=== PATIENT | male | born 1970 | race Caucasian/White ===

== ENCOUNTER 2020-06-24 19:44 | Emergency (ER) | payer BC ==
[2020-06-24] MEDS ORDERED: TETANUS & DIPHTHERIA TOX,ADULT 0.5 ML VIAL ONE (20:38)
[2020-06-24] MEDS ORDERED: HYDROCODONE/APAP 5/325 MG TAB ONE (20:38)
[2020-06-24] MEDS ORDERED: BACITRACIN OINTMENT 15 GM TUBE TOP ONE (20:46)
--- NOTE | 2020-06-24 21:29 | ER ---
Nurse's Notes [facility] Name: Calvin Hsu Age: 49 yrs Sex: Male : 1970 Arrival Date: 06/24/2020 Time: 19:45 Bed 24 Private MD: Diagnosis: Burn of second degree of left hand, unspecified site Presentation: 06/24 19:51 Chief complaint: Patient states: "The pizza stone was falling out of oven and I caught jd3 the pizza stone. the oven was about 450.". Coronavirus screen: At this time, the client does not indicate any symptoms associated with coronavirus-19. Ebola Screen: Patient negative for fever greater than or equal to 101.5 degrees Fahrenheit, and additional compatible Ebola Virus Disease symptoms. Initial Sepsis Screen: Does the patient meet any 2 criteria? No. Patient's initial sepsis screen is negative. Does the patient have a suspected source of infection? No. Patient's initial sepsis screen is negative. Risk Assessment: Do you want to hurt yourself or someone else? Patient reports no desire to harm self or others. Note pt reports having a ride. Onset of symptoms was June 24, 2020. 19:51 Method Of Arrival: Ambulatory jd3 19:51 Acuity: PHILIP 4 jd3 Historical: - Allergies: 19:54 PENICILLINS; jd3 19:54 Sulfa (Sulfonamide Antibiotics); jd3 - Home Meds: 19:54 None [Active]; jd3 - Immunization history:: Adult Immunizations up to date. - Social history:: Smoking status: Patient denies any tobacco usage or history of. Assessment: 20:30 General: Appears in no apparent distress. well groomed, well developed, well nourished, sg Behavior is calm, cooperative, appropriate for age. Pain: Complains of pain in left hand Quality of pain is described as throbbing. Neuro: Level of Consciousness is awake, alert, obeys commands, Oriented to person, place, time, Service Specialist are equal bilaterally. Cardiovascular: Capillary refill is brisk in bilateral fingers Patient's skin is warm and dry. Vital Signs: 19:54 BP 153 / 98; Pulse 73; Resp 17 S; Temp 97.9(TE); Pulse Ox 98% on R/A; Weight 106.59 kg jd3 (R); Height 5 ft. 10 in. (177.80 cm) (R); Pain 8/10; 19:54 Body Mass Index 33.72 (106.59 kg, 177.80 cm) jd3 ED Course: 19:45 Patient arrived in ED. bp1 19:53 Triage completed. jd3 19:54 Arm band placed on. jd3 20:09 [facility] pm1 20:09 Zac Collins MD is Attending Physician. pm1 20:10 Oniel Sam, RN is Primary Nurse. sg 21:30 No provider procedures requiring assistance completed. Patient did not have IV access sg during this emergency room visit. 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 Exp: sg 11/23/2022. Lot #: [id number]. } Route: IM; Site: left deltoid; 20:25 Drug: [place] 5 mg-325 mg 1 tabs Route: PO; sg 20:35 Drug: Bacitracin Ointment (500 unit/g) 1 application Route: Topical; Site: affected sg area; Outcome: 21:28 Discharge ordered by . pm1 21:30 Discharged to home ambulatory, with family. sg 21:30 Condition: good 21:30 Discharge instructions given to patient, Instructed on discharge instructions, follow up and referral plans. no drinking with medication, no driving heavy equipment, medication usage, safety practices, wound care, Demonstrated understanding of instructions, follow-up care, medications, Prescriptions given X 2. 21:34 Patient left the ED. sg Signatures: Oniel Sam RN RN Zach Villegas NP [employer] SUPERVISOR pm1 Fabrizio Cantu RN RN jd3 Cheryl Whitley bp1 Corrections: (The following items were deleted from the chart) 19:56 19:54 Pulse 73bpm; Resp 17bpm; Spontaneous; Pulse Ox 98% RA; Temp 97.9F Temporal; jd3 106.59 kg Reported; Height 5 ft. 10 in. Reported; BMI: 33.7; Pain 8/10; jd3
--- NOTE | 2020-06-24 21:29 | EDPHYS ---
Physician Documentation [facility] Name: Calvin Hsu Age: 49 yrs Sex: Male : 1970 Arrival Date: 06/24/2020 Time: 19:45 Bed 24 Private MD: ED Physician Zac Collins HPI: 06/24 20:26 This 49 yrs old Male presents to ER via Ambulatory with complaints of Hand Burn. pm1 20:26 The patient presents with a burn as a result of a hot surface, pizza stone, at home, is pm1 located on the left hand. Onset: The symptoms/episode began/occurred 1 hour(s) ago. Burn type and severity: 2nd degree: of the finger tip of left thumb, second finger, and third finger. Associated signs and symptoms: none. The patient did not suffer any apparent inhalation injury, The patient had no loss of consciousness. The patient has not experienced similar symptoms in the past. Patient grabbed the pizza stone his bare hand by accident. Presenting with burn to left hand. Historical: - Allergies: 19:54 PENICILLINS; jd3 19:54 Sulfa (Sulfonamide Antibiotics); jd3 - Home Meds: 19:54 None [Active]; jd3 - Immunization history:: Adult Immunizations up to date. - Social history:: Smoking status: Patient denies any tobacco usage or history of. ROS: 20:26 Constitutional: Negative for fever, chills, and weight loss. pm1 20:26 MS/extremity: Negative for decreased range of motion, deformity, able to move left fingers full range of motion. 20:26 Skin: Positive for burn, of the left hand. 20:26 All other systems are negative. Exam: 20:26 Constitutional: This is a well developed, well nourished patient who is awake, alert, pm1 and in no acute distress. Head/Face: Normocephalic, atraumatic. 20:26 Skin: Appearance: normal except for affected area, injury, burn(s), 1st degree burn injury covers approximately 0.1% of the total body surface area, and is located on the palmar aspect of middle phalanx of left index finger and palmar aspect of proximal phalanx of left index finger, 2nd degree burn injury covers approximately 0.1% of the total body surface area, and is located on the palmar aspect of distal phalanx of left middle finger, palmar aspect of distal phalanx of left index finger and palmar aspect of distal phalanx of left thumb. Vital Signs: 19:54 BP 153 / 98; Pulse 73; Resp 17 S; Temp 97.9(TE); Pulse Ox 98% on R/A; Weight 106.59 kg jd3 (R); Height 5 ft. 10 in. (177.80 cm) (R); Pain 8/10; 19:54 Body Mass Index 33.72 (106.59 kg, 177.80 cm) jd3 MDM: 20:12 Patient medically screened. pm1 21:23 Data reviewed: vital signs. Data interpreted: Pulse oximetry: on room air is 98 %. pm1 Interpretation: normal. Counseling: I had a detailed discussion with the patient and/or guardian regarding: the historical points, exam findings, and any diagnostic results supporting the discharge/admit diagnosis, the need for outpatient follow up, burn clinic, to return to the emergency department if symptoms worsen or persist or if there are any questions or concerns that arise at home. 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 Exp: 11/23/2022. Lot #: [id number]. } Route: IM; Site: left deltoid; 20:25 Drug: [place] 5 mg-325 mg 1 tabs Route: PO; sg 20:35 Drug: Bacitracin Ointment (500 unit/g) 1 application Route: Topical; Site: affected sg area; Disposition: 06/25 05:33 Co-signature as Attending Physician, Zac Collins MD. [email or web address] Disposition: 06/24/20 21:28 Discharged to Home. Impression: Burn of second degree of left hand, unspecified site. - Condition is Stable. - Discharge Instructions: Second-Degree Burn. - Prescriptions for bacitracin - apply 1 application by TOPICAL route every 8 hours; 1 tube. Tylenol- Codeine #3 300-30 mg Oral Tablet - take 2 tablets by ORAL route every 6 hours As needed; 20 tablet. - Medication Reconciliation Form, Thank You Letter, Antibiotic Education, Prescription Opioid Use form. - Follow up: Emergency Department; When: As needed; Reason: Worsening of condition. Follow up: Private Physician; When: 2 - 3 days; Reason: Recheck today's complaints, Continuance of care, Re-evaluation by your physician. - Problem is new. - Symptoms have improved. - Notes: [facility], [address] 8th [address] - Inside [facility] 8AM-4:30PM Madi Signatures: Oniel Sam RN RN Zach Hernandez NP POLYMER CHEMIST pm1 Fabrizio Cantu RN RN jZac Graves MD MD [email or web address] Corrections: (The following items were deleted from the chart) 06/24 21:34 21:28 06/24/2020 21:28 Discharged to Home. Impression: Burn of second degree of left sg hand, unspecified site. Condition is Stable. Forms are Medication Reconciliation Form, Thank You Letter, Antibiotic Education, Prescription Opioid Use. Follow up: Emergency Department; When: As needed; Reason: Worsening of condition. Follow up: Private Physician; When: 2 - 3 days; Reason: Recheck today's complaints, Continuance of care, Re-evaluation by your physician. Problem is new. Symptoms have improved. pm1
[2020-06-24 21:38] VITALS: BP 153/98; TEMP 97.9; O2SAT 98
== END 2020-06-24 21:34 | disposition home or self-care (01) ==
LOC: ER 19:44
DX: T23.202A Burn of second degree of left hand, unspecified site, initial encounter (principal); X15.8XXA Contact with other hot household appliances, initial encounter; Y93.9 Activity, unspecified; Y92.000 Kitchen of unspecified non-institutional (private) residence as the place of occurrence of the external cause; Z23 Encounter for immunization; Z88.0 Allergy status to penicillin; Z88.2 Allergy status to sulfonamides
CPT/HCPCS: 90471; 90714; 99283

== ENCOUNTER 2021-01-24 05:32 | Inpatient (IN) | payer BC, OTHER ==
[2021-01-24 06:27] LABS: Absolute Lymphocytes (CBC) 1.8 K/uL (0.7-4.9); Basophils % 0.3 % (0-1.3); Hematocrit 44.1 % (39.6-49.0); Lymphocytes % 16.6 % (15.3-44.8); MPV 8.2 fL (7.6-11.3); RBC Red Blood Cell Count 5.06 M/uL (4.33-5.43)
[2021-01-24 06:45] LABS: ALT/SGPT 40 U/L (12-78); AST/SGOT 36 U/L (15-37); Albumin 3.8 g/dL (3.4-5.0); Alkaline Phosphatase 70 U/L (45-117); BUN Blood Urea Nitrogen 10 mg/dL (7-18); Bicarbonate 27 mmol/L (21-32); Bilirubin Direct 0.2 mg/dL (0-0.2); Bilirubin Total 0.9 mg/dL (0.2-1.0); Glucose Level 121 mg/dL (74-106); Lipase 79 U/L (73-393); Potassium 3.9 mmol/L (3.5-5.1); Protein, Total 7.3 g/dL (6.4-8.2); Sodium Level 138 mmol/L (136-145); Troponin (Emerg Dept Use Only) < 0.02 ng/mL (0.0-0.045)
[2021-01-24] MEDS ORDERED: NA CHLORIDE 0.9% 1,000 ML ONE (07:04)
[2021-01-24] MEDS ORDERED: MORPHINE 4 MG/ML SYR ONE ×2 (07:04→09:27)
[2021-01-24] MEDS ORDERED: METRONIDAZOLE 500mg IVPB 500 MG/100 ML BAG IV ONE (07:04)
[2021-01-24] MEDS ORDERED: CEFTRIAXONE/SWI 1gm 1 GM/10 ML SYR ONE (07:04)
[2021-01-24] MEDS ORDERED: ONDANSETRON 4 MG/2 ML VIAL ONE (07:04)
--- NOTE | 2021-01-24 07:35 | EDPHYS ---
Physician Documentation [facility] Name: Calvin Hsu Age: 50 yrs Sex: Male : 1970 Arrival Date: 01/24/2021 Time: 05:35 Bed 5 Private MD: [place] Physician Zhen Herron HPI: 01/24 06:42 This 50 yrs old Male presents to ER via Ambulatory with complaints of Abdominal Pain. ma2 06:42 The patient presents with abdominal pain in the left lower quadrant. Onset: The ma2 symptoms/episode began/occurred gradually, 3 day(s) ago. Associated signs and symptoms: Pertinent negatives: blood in stools, constipation, dysuria, fever. Severity of pain: At its worst the pain was moderate in the emergency department the pain is unchanged. The patient has not experienced similar symptoms in the past. Historical: - Allergies: 06:00 PENICILLINS; rr5 06:00 Sulfa (Sulfonamide Antibiotics); rr5 - Home Meds: 06:00 Pristiq oral oral [Active]; rr5 - PMHx: 06:00 Depression; rr5 - PSHx: 06:00 Hernia repair; rr5 - Immunization history:: Adult Immunizations up to date, Client reports receiving the 2nd dose of the Covid vaccine. - Social history:: Smoking status: unknown Patient uses alcohol, occasionally. Patient/guardian denies using street drugs, The patient lives alone. - Family history:: not pertinent. ROS: 06:42 Constitutional: Negative for fever, chills, and weight loss. ma2 06:42 All other systems are negative. Exam: 06:42 Constitutional: This is a well developed, well nourished patient who is awake, alert, ma2 and in no acute distress. ENT: Nares patent. No nasal discharge, no septal abnormalities noted. Tympanic membranes are normal and external auditory canals are clear. Oropharynx with no redness, swelling, or masses, exudates, or evidence of obstruction, uvula midline. Mucous membranes moist. Neck: Trachea midline, no thyromegaly or masses palpated, and no cervical lymphadenopathy. Supple, full range of motion without nuchal rigidity, or vertebral point tenderness. No Meningismus. Chest/axilla: Normal chest wall appearance and motion. Nontender with no deformity. No lesions are appreciated. Cardiovascular: Regular rate and rhythm with a normal S1 and S2. No gallops, murmurs, or rubs. Normal PMI, no JVD. No pulse deficits. Respiratory: Lungs have equal breath sounds bilaterally, clear to auscultation and percussion. No rales, rhonchi or wheezes noted. No increased work of breathing, no retractions or nasal flaring. Back: No spinal tenderness. No costovertebral tenderness. Full range of motion. Male : Normal genitalia with no discharge or lesions. MS/ Extremity: Pulses equal, no cyanosis. Neurovascular intact. Full, normal range of motion. Neuro: Awake and alert, GCS 15, oriented to person, place, time, and situation. Cranial nerves II-XII grossly intact. Motor strength 5/5 in all extremities. Sensory grossly intact. Cerebellar exam normal. Normal gait. 06:42 Abdomen/GI: Inspection: abdomen appears normal, Bowel sounds: normal, Palpation: mild abdominal tenderness, in the left lower quadrant, rebound tenderness, is not appreciated, voluntary guarding, is not appreciated, no appreciated organomegaly, Liver: no appreciated palpable abnormalities, Hernia: not appreciated. Vital Signs: 05:57 BP 154 / 85; Pulse 87; Resp 16; Temp 98.9; Pulse Ox 99% ; Weight 106.59 kg; Height 5 rr5 ft. 11 in. (180.34 cm); Pain 9/10; 07:02 BP 141 / 76; Pulse 80; Resp 19; Pulse Ox 98% ; rr5 10:12 BP 132 / 77; Pulse 77; Resp 18; Pulse Ox 95% on R/A; ll1 12:39 BP 132 / 79; Pulse 79; Resp 18; Pulse Ox 95% on R/A; ll1 05:57 Body Mass Index 32.78 (106.59 kg, 180.34 cm) rr5 MDM: 05:50 Patient medically screened. ma2 06:43 Differential diagnosis: diverticulitis, gastritis, gastroesophageal reflux disease, ma2 Irritable bowel syndrome. 07:29 Data reviewed: vital signs, nurses notes, lab test result(s), radiologic studies, CT leni scan. Data interpreted: online marketing strategist: rate is 80 beats/min, rhythm is regular, Pulse oximetry: on room air is 98 %. Test interpretation: by ED physician or midlevel provider:. Counseling: I had a detailed discussion with the patient and/or guardian regarding: the historical points, exam findings, and any diagnostic results supporting the discharge/admit diagnosis, lab results, the need for further work-up and treatment in the hospital. 01/24 05:51 Order name: Basic Metabolic Panel; Complete Time: 06:56 ma2 01/24 05:51 Order name: CBC with Diff; Complete Time: 06:56 ma2 01/24 05:51 Order name: Hepatic Function; Complete Time: 06:56 ma2 01/24 05:51 Order name: Lipase; Complete Time: 06:56 ma2 01/24 05:51 Order name: Troponin (emerg Dept Use Only); Complete Time: 06:56 ma2 01/24 05:52 Order name: CT Abd/Pelvis - Without Cont (PO Contrast Only) va2 01/24 09:00 Order name: Urine Dipstick-Ancillary [facility] 01/24 10:38 Order name: SARS-COV-2 RT PCR EDLA 01/24 05:51 Order name: IV Saline Lock; Complete Time: 06:16 va2 01/24 05:51 Order name: Labs collected and sent; Complete Time: 06:16 va2 01/24 05:51 Order name: Urine Dipstick-Ancillary (obtain specimen); Complete Time: 09:01 va2 01/24 09:03 Order name: NPO; Complete Time: 09:11 leni Administered Medications: 06:45 Drug: NS 0.9% 1000 ml Route: IV; Rate: 1 bolus; Site: right forearm; rr5 09:00 Follow up: Response: No adverse reaction; IV Status: Completed infusion; IV Intake: aa5 1000ml 06:45 Drug: Zofran (Ondansetron) 4 mg Route: IVP; Site: right forearm; rr5 07:14 Follow up: Response: No adverse reaction; RASS: Alert and Calm (0) rr5 06:47 Drug: morphine 4 mg {Note: rass 0.} Route: IVP; Site: right forearm; rr5 07:51 Follow up: Response: No adverse reaction; Pain is decreased; RASS: Alert and Calm (0) ll1 06:48 Drug: Rocephin (cefTRIAXone) 1 grams Route: IV; Rate: calculated rate; Site: right rr5 forearm; 07:50 Follow up: Response: No adverse reaction; RASS: Alert and Calm (0); IV Status: ll1 Completed infusion; IV Intake: 10ml 06:50 Drug: Flagyl (metroNIDAZOLE) 500 mg Volume: 100 ml; Route: IVPB; Rate: 200 ml/hr; rr5 Infused Over: 30 mins; Site: right forearm; 07:50 Follow up: Response: No adverse reaction; RASS: Alert and Calm (0); IV Status: ll1 Completed infusion; IV Intake: 100ml 07:49 Drug: Cipro (ciprofloxacin) 400 mg Volume: 200 ml; Route: IVPB; Infused Over: 60 mins; ll1 Site: right antecubital; 09:11 Follow up: Response: No adverse reaction; RASS: Alert and Calm (0); IV Status: ll1 Completed infusion; IV Intake: 100ml 07:49 Drug: Pepcid (famotidine) 20 mg Route: IVP; Site: right antecubital; ll1 07:51 Follow up: Response: No adverse reaction ll1 09:13 Drug: morphine 4 mg Route: IVP; Site: right antecubital; ll1 10:14 Follow up: Response: No adverse reaction; RASS: Alert and Calm (0) ll1 Disposition: 01/24/21 07:34 Hospitalization ordered by Arsh Cardenas for Inpatient Admission. Preliminary diagnosis are Abdominal tenderness - perforated diverticulitis, mild pneumoperitoneum, Diverticular disease of intestine, Diverticulitis of large intestine with perforation and abscess without bleeding. - Bed requested for Telemetry/MedSurg (Inpatient). - Status is Inpatient Admission. aa5 - Condition is Stable. - Problem is new. - Symptoms have improved. Signatures: Dispatcher [employer] EDLA Lay Sellers RN RN dw Anderson, Corey, MD MD cha Calderon, Audri, RN RN aa5 Arsh Malloyr MD MD ma2 Richie Child RN RN rr5 Osmar Leahy RN RN ll1 Corrections: (The following items were deleted from the chart) 06:16 06:00 PMHx: None; rr5 rr5 09:05 07:34 Hospitalization Ordered by Arsh Cardenas MD for Inpatient Admission. Preliminary leni diagnosis is Abdominal tenderness; Diverticular disease of intestine; Diverticulitis of large intestine without perforation or abscess without bleeding. Bed requested for Telemetry/MedSurg (Inpatient). Status is Inpatient Admission. Condition is Stable. Problem is new. Symptoms have improved. leni 09:53 07:37 CORONAVIRUS+MR.LAB.BRZ ordered. EDLA EDMS 12:39 09:05 01/24/2021 07:34 Hospitalization Ordered by Arsh Cardenas MD for Inpatient dw Admission. Preliminary diagnosis is Abdominal tenderness - perforated diverticulitis, mild pneumoperitoneum; Diverticular disease of intestine; Diverticulitis of large intestine with perforation and abscess without bleeding. Bed requested for Telemetry/MedSurg (Inpatient). Status is Inpatient Admission. Condition is Stable. Problem is new. Symptoms have improved. leni 13:21 12:39 01/24/2021 07:34 Hospitalization Ordered by Arsh Cardenas MD for Inpatient aa5 Admission. Preliminary diagnosis is Abdominal tenderness - perforated diverticulitis, mild pneumoperitoneum; Diverticular disease of intestine; Diverticulitis of large intestine with perforation and abscess without bleeding. Bed requested for Telemetry/MedSurg (Inpatient). Status is Inpatient Admission. Condition is Stable. Problem is new. Symptoms have improved. dw
--- NOTE | 2021-01-24 07:35 | ER ---
Nurse's Notes [facility] Name: Calvin Hsu Age: 50 yrs Sex: Male : 1970 Arrival Date: 01/24/2021 Time: 05:35 Bed 5 Private MD: Diagnosis: Abdominal tenderness-perforated diverticulitis, mild pneumoperitoneum;Diverticular disease of intestine;Diverticulitis of large intestine with perforation and abscess without bleeding Presentation: 01/24 05:57 Chief complaint: Patient states: I am having lower abdominal pain started yesterday and rr5 its getting worse. feels nauseated but no fever or vomiting no urinary symptoms. last BM yesterday watery consistency, once. Coronavirus screen: Client denies travel out of the [place] in the last 14 days. At this time, the client does not indicate any symptoms associated with coronavirus-19. Ebola Screen: Patient negative for fever greater than or equal to 101.5 degrees Fahrenheit, and additional compatible Ebola Virus Disease symptoms Patient denies exposure to infectious person. Patient denies travel to an Ebola-affected area in the 21 days before illness onset. Initial Sepsis Screen: Does the patient meet any 2 criteria? No. Patient's initial sepsis screen is negative. Does the patient have a suspected source of infection? No. Patient's initial sepsis screen is negative. Risk Assessment: Do you want to hurt yourself or someone else? Patient reports no desire to harm self or others. Onset of symptoms was January 23, 2021. 05:57 Method Of Arrival: Ambulatory rr5 05:57 Acuity: PHILIP 3 rr5 Historical: - Allergies: 06:00 PENICILLINS; rr5 06:00 Sulfa (Sulfonamide Antibiotics); rr5 - Home Meds: 06:00 Pristiq oral oral [Active]; rr5 - PMHx: 06:00 Depression; rr5 - PSHx: 06:00 Hernia repair; rr5 - Immunization history:: Adult Immunizations up to date, Client reports receiving the 2nd dose of the Covid vaccine. - Social history:: Smoking status: unknown Patient uses alcohol, occasionally. Patient/guardian denies using street drugs, The patient lives alone. - Family history:: not pertinent. Screenin:02 Abuse screen: Denies threats or abuse. Denies injuries from another. Nutritional rr5 screening: No deficits noted. Tuberculosis screening: No symptoms or risk factors identified. Fall Risk IV access (20 points). Total Royal Fall Scale indicates No Risk (0-24 pts). Assessment: 06:00 General: Appears in no apparent distress. uncomfortable, Behavior is calm, cooperative, rr5 appropriate for age. Pain: Complains of pain in right lower quadrant and left lower quadrant Pain currently is 9 out of 10 on a pain scale. Quality of pain is described as aching, Pain began gradually, Is intermittent. Neuro: Level of Consciousness is awake, alert, obeys commands, Oriented to person, place, time. Cardiovascular: Capillary refill < 3 seconds Patient's skin is warm and dry. Respiratory: Airway is patent Respiratory effort is even, unlabored, Respiratory pattern is regular, symmetrical. GI: Abdomen is round non-distended, Abd is soft Reports lower abdominal pain, nausea. : No signs and/or symptoms were reported regarding the genitourinary system. EENT: No signs and/or symptoms were reported regarding the EENT system. Derm: Skin is intact, is healthy with good turgor, Skin temperature is warm. Musculoskeletal: Capillary refill < 3 seconds. 07:00 Reassessment: No changes from previously documented assessment. Patient and/or family ll1 updated on plan of care and expected duration. Pain level reassessed. Patient is alert, oriented x 3, equal unlabored respirations, skin warm/dry/pink. 09:00 Reassessment: No changes from previously documented assessment. Patient and/or family ll1 updated on plan of care and expected duration. Pain level reassessed. 10:00 Reassessment: No changes from previously documented assessment. Patient and/or family ll1 updated on plan of care and expected duration. Pain level reassessed. 11:00 Reassessment: No changes from previously documented assessment. Patient and/or family ll1 updated on plan of care and expected duration. Pain level reassessed. 12:00 Reassessment: No changes from previously documented assessment. Patient and/or family ll1 updated on plan of care and expected duration. Pain level reassessed. 13:00 Reassessment: No changes from previously documented assessment. Patient and/or family ll1 updated on plan of care and expected duration. Pain level reassessed. Patient states feeling better. Vital Signs: 05:57 BP 154 / 85; Pulse 87; Resp 16; Temp 98.9; Pulse Ox 99% ; Weight 106.59 kg; Height 5 rr5 ft. 11 in. (180.34 cm); Pain 9/10; 07:02 BP 141 / 76; Pulse 80; Resp 19; Pulse Ox 98% ; rr5 10:12 BP 132 / 77; Pulse 77; Resp 18; Pulse Ox 95% on R/A; ll1 12:39 BP 132 / 79; Pulse 79; Resp 18; Pulse Ox 95% on R/A; ll1 05:57 Body Mass Index 32.78 (106.59 kg, 180.34 cm) rr5 ED Course: 05:35 Patient arrived in ED. bp1 05:49 Richie Child, RN is Primary Nurse. rr5 05:50 Arsh Mallory MD is Attending Physician. ma2 06:00 Triage completed. rr5 06:01 Arm band placed on right wrist. rr5 06:10 Patient has correct armband on for positive identification. Placed in gown. Bed in low rr5 position. Call light in reach. transformer molder on. Pulse ox on. NIBP on. 06:10 Inserted saline lock: 20 gauge in right forearm, using aseptic technique. Blood rr5 collected. 07:17 Attending Physician role handed off by Arsh Mallory MD leni 07:17 Zhen Herron MD is Attending Physician. leni 07:30 Arsh Cardenas MD is Hospitalizing Provider. leni 08:25 CT Abd/Pelvis - Without Cont (PO Contrast Only) In Process Unspecified. EDMS 13:06 No provider procedures requiring assistance completed. Patient admitted, IV remains in ll1 place. Administered Medications: 06:45 Drug: NS 0.9% 1000 ml Route: IV; Rate: 1 bolus; Site: right forearm; rr5 09:00 Follow up: Response: No adverse reaction; IV Status: Completed infusion; IV Intake: aa5 1000ml 06:45 Drug: Zofran (Ondansetron) 4 mg Route: IVP; Site: right forearm; rr5 07:14 Follow up: Response: No adverse reaction; RASS: Alert and Calm (0) rr5 06:47 Drug: morphine 4 mg {Note: rass 0.} Route: IVP; Site: right forearm; rr5 07:51 Follow up: Response: No adverse reaction; Pain is decreased; RASS: Alert and Calm (0) ll1 06:48 Drug: Rocephin (cefTRIAXone) 1 grams Route: IV; Rate: calculated rate; Site: right rr5 forearm; 07:50 Follow up: Response: No adverse reaction; RASS: Alert and Calm (0); IV Status: ll1 Completed infusion; IV Intake: 10ml 06:50 Drug: Flagyl (metroNIDAZOLE) 500 mg Volume: 100 ml; Route: IVPB; Rate: 200 ml/hr; rr5 Infused Over: 30 mins; Site: right forearm; 07:50 Follow up: Response: No adverse reaction; RASS: Alert and Calm (0); IV Status: ll1 Completed infusion; IV Intake: 100ml 07:49 Drug: Cipro (ciprofloxacin) 400 mg Volume: 200 ml; Route: IVPB; Infused Over: 60 mins; ll1 Site: right antecubital; 09:11 Follow up: Response: No adverse reaction; RASS: Alert and Calm (0); IV Status: ll1 Completed infusion; IV Intake: 100ml 07:49 Drug: Pepcid (famotidine) 20 mg Route: IVP; Site: right antecubital; ll1 07:51 Follow up: Response: No adverse reaction ll1 09:13 Drug: morphine 4 mg Route: IVP; Site: right antecubital; ll1 10:14 Follow up: Response: No adverse reaction; RASS: Alert and Calm (0) ll1 Intake: 07:50 IV: 100ml; Total: 100ml. ll1 07:50 IV: 10ml; Total: 110ml. ll1 09:00 IV: 1000ml; Total: 1110ml. aa5 09:11 IV: 100ml; Total: 1210ml. ll1 Outcome: 07:34 Decision to Hospitalize by Provider. leni 13:07 Admitted to Tele accompanied by tech, family with patient, via wheelchair, room 423, ll1 with chart, Report called to Quynh Bedoya RN on . 13:07 Condition: stable 13:07 Instructed on the need for admit. 13:21 Patient left the ED. aa5 Signatures: Dispatcher [employer] EDZhen Roe MD MD cha Calderon, Audri, RN RN aa5 Arsh Mallory MD MD ma2 Richie Child RN RN rr5 Osmar Leahy RN RN ll1 Cheryl Whitley [facility] Corrections: (The following items were deleted from the chart) 06:16 06:00 PMHx: None; rr5 rr5
[2021-01-24] MEDS ORDERED: FAMOTIDINE 20 MG/2 ML VIAL IV ONE (07:55)
[2021-01-24] MEDS ORDERED: CIPROFLOXACIN 400mg IV 400 MG/200 ML BAG IV ONE (07:56)
--- NOTE | 2021-01-24 08:46 | RAD REPORT ---
EXAM DESCRIPTION: CT - Abdomen Pelvis Wo Contrast - 01/24/2021 8:25 am CLINICAL HISTORY: Abdominal pain. ABD PAIN COMPARISON: No comparisons TECHNIQUE: CT imaging of the abdomen and pelvis was performed without contrast. Solid organ and vasc ular assessment is limited due to lack of IV contrast. All CT scans are performed using dose optimization technique as appropriate and may include automated exposure control or mA/KV adjustment according to patient size. FINDINGS: The lower lung toure are clear. The liver, spleen, pancreas, adrenal glands and kidneys are within normal limits for a limited non-co ntrast examination. Small amount of pneumoperitoneum is present in the upper abdomen. There is a 5 cm length of sigmoid c olon in the left lower quadrant with surrounding inflammation present. Several diverticula are presen t in the region. The appendix is normal. No free fluid or abscess. The osseous structures are within normal limits.Small to moderate left fat containing inguinal hernia . IMPRESSION: 5 cm length of inflammation is seen involving the left lower quadrant sigmoid colon like ly indicating diverticulitis. Colonoscopy followup would be suggested after appropriate therapy to ex clude underlying inflammatory mass. Mild pneumoperitoneum is seen. A limited non-contrast examination was performed as detailed.
[2021-01-24 09:00] LABS: Urine Blood Negative (Negative); Urine Glucose Negative (Negative); Urine Protein Negative (Negative)
[2021-01-24] MEDS ORDERED: ACETAMINOPHEN 500 MG TAB PO PRN (11:49)
[2021-01-24] MEDS: NA CHLORIDE 0.9% 1,000 ML IV SCH ×2 (13:36→22:07)
[2021-01-24 13:56] VITALS: BMI 32.8
[2021-01-24] MEDS: METRONIDAZOLE 500mg IVPB 500 MG/100 ML BAG IV SCH (16:29)
[2021-01-24] MEDS: ONDANSETRON 4 MG/2 ML VIAL IV PRN ×2 (16:33→22:06)
[2021-01-24] MEDS: MORPHINE 4 MG/ML SYR IV PRN ×2 (16:33→22:06)
--- NOTE | 2021-01-24 17:05 | CON ---
Date of Consultation: 01/24/2021 Reason: Abdominal pain. History Of Present Illness: The patient is a 50-year-old gentleman comes in with a 2-day history of lower abdominal pain. This started initially as a discomfort and became more painful. He had no nancy rrhea, constipation or blood in his stool. No dysuria or hematuria. No sore throat, runny nose, cou gh, headaches, or dizziness. No chest pain. No fever or chills. Has not had similar episodes in th e past. He did have a colonoscopy 5 years ago which reportedly showed some diverticulosis, that was in [place]. He recently found out that mother has colon cancer. Review of Systems: Otherwise unremarkable. Past Medical History: Depression. Past Surgical History: Hernia surgery in the right groin. Allergies: PENICILLIN AND SULFA. Social History: The patient does not smoke. Drinks occasionally. Family History: Other than the colon cancer in the mother is unremarkable. Physical Examination: Vital Signs: Currently are stable. He is afebrile. General: He is awake, alert, and oriented x3. Head and neck: Cranial nerves 2 through 12 are grossly within normal limits. No neck masses. No JV D. Throat clear. Chest: Clear. Heart: S1 and S2. Abdomen: Soft, slightly distended. Minimal diffuse tenderness but there is exquisite tenderness wit h minimal rebound in the left lower quadrant. No rigidity or guarding Extremities: Adequately perfused. Nontender. Neuro: Nonfocal. Radiographic Data: CT of the abdomen and pelvis shows a small amount of pneumoperitoneum in the uppe r abdomen. There is a 5 cm length of the sigmoid colon in the left lower quadrant with surrounding i nflammation present and several diverticula present in this region. is within normal limi ts. There is a small to moderate left fat containing inguinal hernia. White count is 11,000 with a left shift. Electrolytes reviewed, essentially unremarkable. COVID negative and UA is negative. Assessment: Acute sigmoid diverticulitis with microperforation. Recommendation: As the patient does not have peritonitis at this time, I think conservative treatmen t should be attempted with n.p.o. IV fluids, IV antibiotics, serial abdominal exam and should the pat ient clinically improve, he would need oral antibiotics as an outpatient for 2 weeks followed by a co lonoscopy in 4 to 6 weeks and then a colorectal evaluation. If the patient deteriorates however, he may need surgical intervention sooner including a Padma's procedure. Plan of care discussed in de tail with the patient. /MODL Voice ID: [id number] Report ID: [id number]
[2021-01-24] MEDS: Levofloxacin500mg IV 500 MG/100 ML BAG IV SCH (22:07)
[2021-01-25] MEDS: METRONIDAZOLE 500mg IVPB 500 MG/100 ML BAG IV SCH ×3 (01:07→16:24)
[2021-01-25 04:14] LABS: Absolute Lymphocytes (CBC) 1.7 K/uL (0.7-4.9); Basophils % 0.3 % (0-1.3); Hematocrit 40.8 % (39.6-49.0); Lymphocytes % 18.1 % (15.3-44.8); MPV 7.9 fL (7.6-11.3); RBC Red Blood Cell Count 4.65 M/uL (4.33-5.43)
[2021-01-25 04:30] LABS: Albumin 3.5 g/dL (3.4-5.0); Bilirubin Total 1.5 mg/dL (0.2-1.0); Potassium 4.3 mmol/L (3.5-5.1); Protein, Total 6.9 g/dL (6.4-8.2)
[2021-01-25] MEDS: MORPHINE 4 MG/ML SYR IV PRN ×4 (08:05→21:45)
[2021-01-25] MEDS: ONDANSETRON 4 MG/2 ML VIAL IV PRN ×4 (08:08→21:45)
--- NOTE | 2021-01-25 08:51 | RAD REPORT ---
EXAM DESCRIPTION: RAD - Abdomen W Erect - 01/25/2021 8:44 am CLINICAL HISTORY: Abdominal pain FINDINGS: Free air is not seen beneath the diaphragm. Contrast is present within nondilated colon. A large collection of air within the pelvis is not noted.
[2021-01-25] MEDS: NA CHLORIDE 0.9% 1,000 ML IV SCH ×2 (13:09→17:19)
--- NOTE | 2021-01-25 15:26 | PN ---
Date of Progress Note: 01/25/2021 Subjective: The patient feels a little better. Pain is little bit better. Vitals are stable. Afeb rile. Abdominal x-ray does not show any free air. White count is normal. Abdomen has localized ten derness in the left lower quadrant. There is no peritonitis. Assessment: Acute sigmoid diverticulitis with microperforation. Recommendation: Continue n.p.o. today, ice chips only and IV antibiotics. Serial abdominal exam. H opefully, tomorrow, we can advance to a clear liquid and then over the weekend slowly advance the t. We will get a dietary consultation as well. Plan of discussed with Dr. Cardenas. /BREANNE Voice ID: [id number] Report ID: [id number]
[2021-01-25] MEDS: Levofloxacin500mg IV 500 MG/100 ML BAG IV SCH (20:10)
[2021-01-26] MEDS: NA CHLORIDE 0.9% 1,000 ML IV SCH ×3 (01:10→20:59)
[2021-01-26] MEDS: METRONIDAZOLE 500mg IVPB 500 MG/100 ML BAG IV SCH ×2 (01:16→09:49)
[2021-01-26] MEDS: MORPHINE 4 MG/ML SYR IV PRN ×2 (09:55→21:02)
--- NOTE | 2021-01-26 15:37 | PN ---
Date of Progress Note: 01/26/2021 Subjective: The patient is awake and alert. No complaints. Objective: Vital Signs: Stable, afebrile. He did have a bowel movement, diarrhea. Abdomen: Soft, nondistended. Very minimal tenderness in the left lower quadrant. No rebound, rigid ity, or guarding. Assessment: Acute sigmoid diverticulitis with microperforation. Recommendations: We will start him on clear liquids. Discussed the case with Dr. Cardenas. We will rep eat a CAT scan prior to discharge and then follow up with me in 1 to 2 weeks. The patient will be di scharged home on oral antibiotics. /MODL Voice ID: [id number] Report ID: [id number]
[2021-01-26] MEDS: Levofloxacin500mg IV 500 MG/100 ML BAG IV SCH (20:58)
[2021-01-26] MEDS: ONDANSETRON 4 MG/2 ML VIAL IV PRN (21:02)
[2021-01-27] MEDS: NA CHLORIDE 0.9% 1,000 ML IV SCH ×3 (08:13→20:12)
--- NOTE | 2021-01-27 10:05 | RAD REPORT ---
EXAM DESCRIPTION: CT - Abdomen Pelvis W Contrast - 01/27/2021 9:33 am CLINICAL HISTORY: Abdominal pain. COMPARISON: January 24, 2021 TECHNIQUE: Computed axial tomography of the abdomen and pelvis was obtained. 100 cc Isovue-300 is ad ministered intravenously. Oral contrast was given. All CT scans are performed using dose optimization technique as appropriate and may include automated exposure control or mA/KV adjustment according to patient size. FINDINGS: Fatty liver The Spleen, pancreas, adrenals and kidneys appear unremarkable. The appendix is normal caliber. Narrowing of the sigmoid colon persists. Moderate stranding adjacent to the sigmoid mildly worsened s александр the prior exam. No abscess. Colon diverticulosis Minimal pneumoperitoneum without significant change. Moderate left inguinal hernia contains fat. IMPRESSION: Moderate stranding adjacent to the sigmoid colon with sigmoid colon narrowing. This prob ably represents perforated diverticulitis. Perforated colon cancer can also have a similar presentati on. Very small amount of pneumoperitoneum
[2021-01-27 19:40] VITALS: O2SAT 96
[2021-01-27] MEDS: Levofloxacin500mg IV 500 MG/100 ML BAG IV SCH (20:12)
--- NOTE | 2021-01-28 00:09 | P.HP ---
Certification for Inpatient Patient admitted to: Inpatient Patient will require the following post-hospital care: None Practitioner: I am a practitioner with admitting privileges, knowledge of patient current condition, hospital course, and medical plan of care. Services: Services provided to patient in accordance with Admission requirements found in Title 42 Section 412.3 of the Code of Federal Regulations Patient History Date of Service: 01/24/21 Reason for admission: Acute diverticulitis History of Present Illness: Patient is a 50-year-old gentleman who came to the hospital with acute diverticulitis. Apparently, patient started having severe abdominal pain along with nausea. Patient came into the emergency room for further evaluation. On further evaluation with imaging studies, it was revealed that patient had a perforated diverticulitis. There appear to be a microperforation. Decision was made to admit the patient to the hospital for further evaluation. Otherwise, patient denies any other medical history. He has been told he has diverticulum's in the past. Patient also with a history of bipolar disorder. Allergies metronidazole [From Flagyl] Allergy (Verified 01/26/21 11:29) Hives/Rash Penicillins Allergy (Verified 01/24/21 12:12) UNK Sulfa (Sulfonamide Antibiotics) Allergy (Verified 01/24/21 12:12) UNK Home Medications: Desvenlafaxine Succinate [Pristiq ER] 50 mg PO DAILY 01/24/21 Lamotrigine [Lamictal] 3 tab PO DAILY 01/24/21 - Past Medical/Surgical History Has patient received pneumonia vaccine in the past: No Diabetic: No -: Depression -: Hernia repair - Family History Father Family History: Reviewed- Non-Contributory - Social History Smoking Status: Never smoker Alcohol use: Yes CD- Drugs: No Caffeine use: Yes Place of Residence: Home Review of Systems 10-point ROS is otherwise unremarkable Physical Examination - Vital Signs Temperature: 97.3 F Blood Pressure: 126/60 Pulse: 60 Respirations: 18 Pulse Ox (%): 96 - Physical Exam General: Alert, In no apparent distress, Oriented x3 HEENT: Atraumatic, PERRLA, Mucous membr. moist/pink, EOMI, Sclerae nonicteric Neck: Supple, 2+ carotid pulse no bruit, No LAD, Without JVD or thyroid abnormality Respiratory: Clear to auscultation bilaterally, Normal air movement Cardiovascular: Regular rate/rhythm, Normal S1 S2, No murmurs Gastrointestinal: Soft and benign, Non-distended, No rebound, No guarding, Tenderness Musculoskeletal: No clubbing, No swelling, No tenderness Integumentary: No rashes Neurological: Normal gait, Normal speech, Normal strength at 5/5 x4 extr, Normal tone, Sensation intact, Cranial nerves 3-12 intact, Normal affect Lymphatics: No axilla or inguinal lymphadenopathy Assessment & Plan - Problems (Diagnosis) (1) Perforated diverticulum of large intestine Current Visit: Yes Status: Acute - Plan 1. Continue with IV hydration 2. Continue with IV antibiotics 3. Continue with pain control 4. NPO 5. General surgery consultation; outpatient colonoscopy in 6-12 weeks 6. Serial H&H, and we will monitor CBC, BMP, LFTs and lipase along with electrolytes. 7. Blood cultures pending 8. Repeat imaging studies 9. Repeat CT scan 10. GI and DVT prophylaxis Discharge Plan: Home Plan to discharge in: Greater than 2 days - Advance Directives Does patient have a Living Will: No Does patient have a Durable POA for Healthcare: No - Code Status/Comfort Care Code Status Assessed: Yes Code Status: Full Code Critical Care: No Time Spent Managing PTS Care (In Minutes): 45
--- NOTE | 2021-01-28 00:13 | P.PN ---
Subjective Date of Service: 01/25/21 Patient continues to improve with no new complaints. Still with some abdominal tenderness but overall he feels much better Review of Systems 10-point ROS is otherwise unremarkable Physical Examination - Vital Signs Temperature: 97.3 F Blood Pressure: 126/60 Pulse: 60 Respirations: 18 Pulse Ox (%): 96 - Physical Exam General: Alert, In no apparent distress, Oriented x3 Respiratory: Clear to auscultation bilaterally, Normal air movement Cardiovascular: Regular rate/rhythm, Normal S1 S2 Gastrointestinal: Normal bowel sounds, Soft and benign, Non-distended, No rebound, No guarding, Tenderness Musculoskeletal: No clubbing, No swelling, No tenderness Neurological: Normal speech, Normal strength at 5/5 x4 extr, Normal tone, Sensation intact, Cranial nerves 3-12 intact - Studies Medications List Reviewed: Yes Assessment & Plan - Problems (Diagnosis) (1) Perforated diverticulum of large intestine Current Visit: Yes Status: Acute - Plan Continue with plan of care as mentioned below: 1. Continue with IV hydration 2. Continue with IV antibiotics 3. Continue with pain control 4. NPO 5. General surgery consultation; outpatient colonoscopy in 6-12 weeks 6. Serial H&H, and we will monitor CBC, BMP, LFTs and lipase along with electrolytes. 7. Blood cultures pending 8. Repeat imaging studies 9. Repeat CT scan 10. GI and DVT prophylaxis Discharge Plan: Home Plan to discharge in: Greater than 2 days - Advance Directives Does patient have a Living Will: No Does patient have a Durable POA for Healthcare: No - Code Status/Comfort Care Code Status: Full Code Critical Care: No Time Spent Managing PTS Care (In Minutes): 35
--- NOTE | 2021-01-28 00:18 | P.PN ---
Date of Service: 01/26/21 Subjective Patient continues to improve with no new complaints. Still with some abdominal tenderness but overall he feels much better Review of Systems 10-point ROS is otherwise unremarkable Physical Examination - Vital Signs Reviewed - Physical Exam General: Alert, In no apparent distress, Oriented x3 Respiratory: Clear to auscultation bilaterally, Normal air movement Cardiovascular: Regular rate/rhythm, Normal S1 S2 Gastrointestinal: Normal bowel sounds, Soft and benign, Non-distended, No rebound, No guarding, Tenderness Musculoskeletal: No clubbing, No swelling, No tenderness Neurological: Normal speech, Normal strength at 5/5 x4 extr, Normal tone, Sen sation intact, Cranial nerves 3-12 intact - Studies Medications List Reviewed: Yes Assessment & Plan - Problems (Diagnosis) (1) Perforated diverticulum of large intestine Current Visit: Yes Status: Acute - Plan Continue with plan of care as mentioned below: 1. Continue with IV hydration 2. Continue with IV antibiotics 3. Continue with pain control 4. Start clear liquid diet per General surgery 5. Continue monitoring lab data 7. Blood cultures pending 8. Repeat imaging studies does not reveal any free air 9. Repeat CT scan in the morning 10. GI and DVT prophylaxis
--- NOTE | 2021-01-28 00:26 | P.PN ---
Date of Service: 01/27/21 Subjective Patient is repeat CT scan continues to show significant inflammation around the sigmoid colon. No significant improvement of the diverticulitis. No worsening of the perforation that was noted. Labs are ordered for in the morning. At this time continue with IV antibiotic therapy. No abscess formation so no aggressive intervention at this time. Will discuss with surgery regarding future plan of care once antibiotic therapy is completed. Review of Systems 10-point ROS is otherwise unremarkable Physical Examination - Vital Signs Reviewed - Physical Exam General: Alert, In no apparent distress, Oriented x3 Respiratory: Clear to auscultation bilaterally, Normal air movement Cardiovascular: Regular rate/rhythm, Normal S1 S2 Gastrointestinal: Normal bowel sounds, Soft and benign, Non-distended, No rebound, No guarding, minimal tenderness noted Musculoskeletal: No clubbing, No swelling, No tenderness - Studies Medications List Reviewed: Yes Assessment & Plan - Problems (Diagnosis) (1) Perforated diverticulum of large intestine Current Visit: Yes Status: Acute - Plan Continue with plan of care as mentioned below: 1. Continue with gentle IV hydration 2. Continue with IV antibiotics 3. Continue with pain control as needed; pain much better 4. Continue clear liquid diet 5. Repeat labs in the morning 6. GI and DVT prophylaxis
[2021-01-28] MEDS: NA CHLORIDE 0.9% 1,000 ML IV SCH ×2 (05:57→14:11)
[2021-01-28] MEDS ORDERED: HYDROCODONE/APAP 7.5/325 MG TAB PO PRN (15:46)
[2021-01-28] MEDS ORDERED: TRAMADOL HCL 50 MG TAB PO PRN (15:46)
--- NOTE | 2021-01-28 15:47 | P.PN ---
Subjective Date of Service: 01/28/21 Chief Complaint: Acute diverticulitis Subjective: Improving, Doing well Physical Examination - Vital Signs Temperature: 97.3 F Blood Pressure: 136/70 Pulse: 58 Respirations: 16 Pulse Ox (%): 97 - Studies Medications List Reviewed: Yes Assessment & Plan Discharge Plan: Home Plan to discharge in: 24 Hours Physician Review Additional Text: Physical Exam: GENERAL: Physical Exam: GENERAL: The patient is a well-developed, well-nourished, in no apparent distress. Alert and oriented x3. VITAL SIGNS: Reviewed NECK: Supple. No carotid bruits. No lymphadenopathy or thyromegaly. LUNGS: Clear to auscultation. No crackles or wheezes are heard. HEART: Regular rate and rythem, no appreciable gallops, rubs, murmurs or extra heart sounds ABDOMEN: Soft, nondistended. Positive bowel sounds. Minimal pain to the left lower quadrant. EXTREMITIES: Without any cyanosis, clubbing, rash, lesions or peripheral edema. NEUROLOGIC: The patient is oriented to person, place and time. Strength and sensation are grossly intact. Face is symmetric. SKIN: Normal color, turgor and temperature. No ulcerations or rashes noted. Impression: Abdominal pain secondary to perforated sigmoid diverticulitis Obesity, BMI 32.8 Plan: Patient doing well at this time. Passage of gas noted. Patient tolerating clear liquid diet. Will advance to full liquid. We will continue to monitor closely. There was some question of possible allergy to Flagyl. This is likely from infiltration. We will restart IV Flagyl. Continue IV Levaquin. Case discussed with surgery. Surgery agrees with plan of care. Continue with current plan. If tolerates soft diet by tomorrow we will consider discharge. Code Status: Full Code DVT prophylaxis: Lovenox Advanced Care Planning-30 minutes: Plan of care for the patient's discharge was discussed in detail with the patient and . Anticipate discharge likely tomorrow if tolerates soft diet. Time Spent Managing Pts Care (In Minutes): 55
[2021-01-28] MEDS: METRONIDAZOLE 500mg IVPB 500 MG/100 ML BAG IV SCH (16:11)
[2021-01-28] MEDS ORDERED: ENOXAPARIN 40 MG/0.4 ML SQ SCH (17:00)
[2021-01-28] MEDS ORDERED: METRONIDAZOLE 500mg IVPB 500 MG/100 ML BAG IV SCH (17:00)
[2021-01-28] MEDS: LACTOBACILLUS/ACIDOPHILUS TAB PO SCH (20:02)
[2021-01-28] MEDS: Levofloxacin500mg IV 500 MG/100 ML BAG IV SCH (20:02)
[2021-01-29] MEDS: METRONIDAZOLE 500mg IVPB 500 MG/100 ML BAG IV SCH ×2 (00:12→08:25)
[2021-01-29] MEDS: NA CHLORIDE 0.9% 1,000 ML IV SCH (01:21)
[2021-01-29 06:16] LABS: Absolute Lymphocytes (CBC) 1.5 K/uL (0.7-4.9); Basophils % 0.3 % (0-1.3); Hematocrit 38.1 % (39.6-49.0); Lymphocytes % 30.8 % (15.3-44.8); MPV 7.7 fL (7.6-11.3); RBC Red Blood Cell Count 4.43 M/uL (4.33-5.43)
[2021-01-29 06:20] LABS: Protime INR 1.15
[2021-01-29 06:35] LABS: Albumin 3.2 g/dL (3.4-5.0); Bilirubin Total 0.4 mg/dL (0.2-1.0); Magnesium 2.2 mg/dL (1.8-2.4); Phosphorus 3.3 mg/dL (2.5-4.9); Potassium 3.9 mmol/L (3.5-5.1); Protein, Total 6.7 g/dL (6.4-8.2)
--- NOTE | 2021-01-29 07:38 | P.DS ---
Admission Date: 01/24/21 Discharge Date: 01/29/21 Primary Care Provider: Dr. Prabhakar Disposition: ROUTINE DISCHARGE Discharge Condition: GOOD Reason for Admission: Acute diverticulitis Consultations: Surgery-Dr. Velazquez Procedures: COVID: Negative CT scan: COMPARISON: No comparisons TECHNIQUE: CT imaging of the abdomen and pelvis was performed without contrast. Solid organ and vascular assessment is limited due to lack of IV contrast. All CT scans are performed using dose optimization technique as appropriate and may include automated exposure control or mA/KV adjustment according to patient size. FINDINGS: The lower lung toure are clear. The liver, spleen, pancreas, adrenal glands and kidneys are within normal limits for a limited non-contrast examination. Small amount of pneumoperitoneum is present in the upper abdomen. There is a 5 cm length of sigmoid colon in the left lower quadrant with surrounding inflammation present. Several diverticula are present in the region. The appendix is normal. No free fluid or abscess. The osseous structures are within normal limits.Small to moderate left fat co ntaining inguinal hernia. IMPRESSION: 5 cm length of inflammation is seen involving the left lower quadrant sigmoid colon likely indicating diverticulitis. Colonoscopy followup would be suggested after appropriate therapy to exclude underlying inflammatory mass. Mild pneumoperitoneum is seen. A limited non-contrast examination was performed as detailed. Follow up CT scan: COMPARISON: January 24, 2021 TECHNIQUE: Computed axial tomography of the abdomen and pelvis was obtained. 100 cc Isovue-300 is administered intravenously. Oral contrast was given. All CT scans are performed using dose optimization technique as appropriate and may include automated exposure control or mA/KV adjustment according to patient size. FINDINGS: Fatty liver The Spleen, pancreas, adrenals and kidneys appear unremarkable. The appendix is normal caliber. Narrowing of the sigmoid colon persists. Moderate stranding adjacent to the sigmoid mildly worsened since the prior exam. No abscess. Colon diverticulosis Minimal pneumoperitoneum without significant change. Moderate left inguinal hernia contains fat. IMPRESSION: Moderate stranding adjacent to the sigmoid colon with sigmoid colon narrowing. This probably represents perforated diverticulitis. Perforated colon cancer can also have a similar presentation. Very small amount of pneumoperitoneum Medical problem list: Abdominal pain secondary to acute sigmoid diverticulitis with microperforation Fatty liver CT scan showing moderate left inguinal hernia Depression Obesity, BMI 32.8 Brief History of Present Illness: 50-year-old male with history of lower quadrant abdominal pain. Patient with history of diverticulosis. Patient found to have acute sigmoid diverticulitis with microperforation. Patient was admitted for treatment. Hospital Course: Patient presented with abdominal pain secondary to acute sigmoid diverticulitis with microperforation. Patient was admitted for treatment. Patient received IV antibiotic therapy. Patient was seen and evaluated by surgery. No surgical intervention was required. Patient improved. At discharge patient was able to tolerate a low residue diet. No significant abdominal pain, nausea, and vomiting noted at discharge. At discharge patient will continue with a low residue diet. At discharge patient will continue with Levaquin 500 mg daily and Flagyl 500 mg 3 times a day for 10 days. Patient also continue with lactobacillus 3 times a day. Patient is to monitor for any excessive pain, fever or significant bloating. Recommend follow-up with surgery in 1 week to follow-up his hospitalization and continue his care. Patient will likely require further evaluation as an outpatient with colorectal surgery including colonoscopy in 4 to 6 weeks. This can be done with the help of surgery. Education on diverticulitis provided. Patient will be cleared to go to work after seen by surgery as an outpatient. CT scan also showed fatty liver and left inguinal hernia. Education on fatty liver and hernia provided. No heavy lifting, pushing or pulling recommended. Patient with history of depression. At discharge patient will continue with his medications including Pristiq and Lamictal. Recommend follow-up with his PCP or psychiatrist to further monitor and adjust medication. Patient with BMI 32.8. Lifestyle modification education provided. Vital Signs/Physical Exam: Temp Pulse Resp BP Pulse Ox 97.6 F 58 16 132/63 96 01/29/21 04:00 01/29/21 04:00 01/29/21 04:00 01/29/21 04:00 01/29/21 04:00 General: Alert, In no apparent distress, Oriented x3, Cooperative HEENT: Atraumatic Neck: Supple Respiratory: Clear to auscultation bilaterally, Normal air movement Cardiovascular: Normal pulses, Regular rate/rhythm Gastrointestinal: Normal bowel sounds, No ascites, No tenderness, No masses, No rebound, No guarding Musculoskeletal: No erythema, No tenderness, No warmth Integumentary: No tenderness/swelling Neurological: Normal speech, Normal strength at 5/5 x4 extr, Normal tone, Normal affect Laboratory Data at Discharge: WBC 4.90 K/uL (4.3-10.9) D 05/11/21 05:51 Hgb 13.2 g/dL (13.6-17.9) L 01/29/21 05:51 Hct 38.1 % (39.6-49.0) L 01/29/21 05:51 Plt Count 253 K/uL (152-406) D 01/29/21 05:51 PT 13.2 SECONDS (9.5-12.5) H 01/29/21 05:51 INR 1.15 01/29/21 05:51 APTT 35.6 SECONDS (24.3-36.9) 01/29/21 05:51 Sodium 143 mmol/L (136-145) 01/29/21 05:51 Potassium 3.9 mmol/L (3.5-5.1) 01/29/21 05:51 BUN 7 mg/dL (7-18) 01/29/21 05:51 Creatinine 0.92 mg/dL (0.55-1.3) 01/29/21 05:51 Glucose 99 mg/dL (74-106) 01/29/21 05:51 Phosphorus 3.3 mg/dL (2.5-4.9) 01/29/21 05:51 Magnesium 2.2 mg/dL (1.8-2.4) 01/29/21 05:51 Total Bilirubin 0.4 mg/dL (0.2-1.0) 01/29/21 05:51 AST 15 U/L (15-37) 01/29/21 05:51 ALT 27 U/L (12-78) 01/29/21 05:51 Alkaline Phosphatase 67 U/L (45-117) 01/29/21 05:51 Lipase 79 U/L (73-393) 01/24/21 06:08 Home Medications: Desvenlafaxine Succinate [Pristiq ER] 50 mg PO DAILY 01/24/21 Lamotrigine [Lamictal] 3 tab PO DAILY 01/24/21 Lactobacillus Acidophilus [Acidophilus Lactobacilli] 1 each PO TID #90 capsule 01/29/21 Levofloxacin [Levaquin] 500 mg PO DAILY #10 tablet 01/29/21 metroNIDAZOLE [Flagyl] 500 mg PO Q8H #30 tablet 01/29/21 New Medications: Lactobacillus Acidophilus [Acidophilus Lactobacilli] 1 each PO TID #90 capsule metroNIDAZOLE [Flagyl] 500 mg PO Q8H #30 tablet Levofloxacin [Levaquin] 500 mg PO DAILY #10 tablet Physician Discharge Instructions: Patient presented with abdominal pain secondary to acute sigmoid diverticulitis with microperforation. Patient was admitted for treatment. Patient received IV antibiotic therapy. Patient was seen and evaluated by surgery. No surgical intervention was required. Patient improved. At discharge patient was able to tolerate a low residue diet. No significant abdominal pain, nausea, and vomiting noted at discharge. At discharge patient will continue with a low residue diet. At discharge patient will continue with Levaquin 500 mg daily and Flagyl 500 mg 3 times a day for 10 days. Patient also continue with lactobacillus 3 times a day. Patient is to monitor for any excessive pain, fever or significant bloating. Recommend follow-up with surgery in 1 week to follow-up his hospitalization and continue his care. Patient will likely require further evaluation as an outpatient with colorectal surgery including colonoscopy in 4 to 6 weeks. This can be done with the help of surgery. Education on diverticulitis provided. Patient will be cleared to go to work after seen by surgery as an outpatient. CT scan also showed fatty liver and left inguinal hernia. Education on fatty liver and hernia provided. No heavy lifting, pushing or pulling recommended. Patient with history of depression. At discharge patient will continue with his medications including Pristiq and Lamictal. Recommend follow-up with his PCP or psychiatrist to further monitor and adjust medication. Patient with BMI 32.8. Lifestyle modification education provided. Diet: Regular Activity: Fall precautions Followup: Mumtaz Prabhakar MD [Primary Care Provider] - Time spent managing pt's care (in minutes): 55
[2021-01-29] MEDS: LACTOBACILLUS/ACIDOPHILUS TAB PO SCH ×2 (08:25→14:40)
[2021-01-29 12:35] VITALS: BP 129/73; TEMP 98
== END 2021-01-29 15:02 | disposition home or self-care (01) | DRG 392 ==
LOC: ER 05:32 → ERHOLD 11:56 → 4TH 13:05 → 2ND 01-28 18:12
PROVIDERS: ADMIT Hospitalist; ATTEND Family Medicine
DX: K57.20 Diverticulitis of large intestine with perforation and abscess without bleeding (principal); E66.9 Obesity, unspecified; Z68.32 Body mass index [BMI] 32.0-32.9, adult; K76.0 Fatty (change of) liver, not elsewhere classified; K40.90 Unilateral inguinal hernia, without obstruction or gangrene, not specified as recurrent; F32.9 Major depressive disorder, single episode, unspecified; Z88.0 Allergy status to penicillin; Z88.1 Allergy status to other antibiotic agents; Z60.2 Problems related to living alone; Z79.899 Other long term (current) drug therapy; Z20.822 Contact with and (suspected) exposure to COVID-19
CPT/HCPCS: 36415; 74019; 74176; 74177; 80048; 80053; 80076; 81003; 83605; 83690; 83735; 84100; 84145; 84484; 85025; 85610; 85730; 99285; J0696; J0744; J1650; J2405; J7030; Q9967; U0003